=== PATIENT | male | born 1990 | race Hispanic/Latino ===

== ENCOUNTER 2024-06-11 23:48 | Inpatient (IN) | payer SELFPAY ==
[~2024-06-11] VITALS: Ht 167.6 cm; Wt 79.9 kg
[2024-06-12] MEDS: morPHINE 2 MG SYG IVP ONE ×2 (00:19→02:58)
[2024-06-12] MEDS: FAMOTIDINE 20MG VIAL IV ONE (00:19)
[2024-06-12] MEDS: ondanSETRON 4MG INJ IVP ONE ×2 (00:19→02:58)
[2024-06-12 00:29] LABS: BASOPHILS # (AUTO) 0.05 K/uL (0.00-0.20); BASOPHILS % (AUTO) 0.4 % (0.0-5.0); EOSINOPHILS # (AUTO) 0.14 K/uL (0.00-0.70); EOSINOPHILS % (AUTO) 1.1 % (0.0-8.0); HEMATOCRIT 43.5 % (42-54); IMMATURE GRANULOCYTE ABSOLUTE 0.03 K/uL (0-1); LYMPHOCYTES # (AUTO) 5.6 K/uL (1.0-4.8); LYMPHOCYTES % (AUTO) 44.8 % (21.0-51.0); MEAN CORPUSCULAR HEMOGLOBIN 30.9 pg (27.0-33.0); MEAN CORPUSCULAR HGB CONC 34.5 g/dL (32.0-36.0); MEAN CORPUSCULAR VOLUME 89.5 fL (79-99); MONOCYTES # (AUTO) 1.5 K/uL (0.1-1.0); MONOCYTES % (AUTO) 11.6 % (3.0-13.0); NEUTROPHILS # (AUTO) 5.2 K/uL (1.8-7.7); NEUTROPHILS % (AUTO) 41.9 % (40.0-77.0); PLATELET COUNT (AUTO) 272 K/uL (130-400); RED BLOOD CELL COUNT(AUTO) 4.86 MIL/uL (4.50-6.20); RED CELL DISTRIBUTION WIDTH 13.3 % (11.0-15.5); WHITE BLOOD COUNT (AUTO) 12.5 K/uL (4.8-10.8)
[2024-06-12 00:36] LABS: POTASSIUM 3.1 mmol/L (3.5-5.1)
[2024-06-12 00:40] LABS: ALBUMIN 3.9 g/dL (3.5-5.0); BILIRUBIN,DIRECT 0.2 mg/dL (0.0-0.3); BILIRUBIN,TOTAL 0.6 mg/dL (0.2-1.0); TOTAL PROTEIN, SERUM 7.3 g/dL (6.0-8.3)
[2024-06-12] MEDS: hydroMORPHone 1 MG INJ ONE (00:48)
[2024-06-12] MEDS: hydroMORPHone 1 MG INJ IVP ONE (00:48)
[2024-06-12] MEDS: ketOROlac 15MG/ML VIAL (15MG/ML) ONE (00:48)
[2024-06-12] MEDS: ketOROlac 15MG/ML VIAL (15MG/ML) IV ONE (00:48)
[2024-06-12 00:55] LABS: LYMPHOCYTES % (MANUAL) 54 % (22-44); MAN.DIFF COMMENT-IMPRESSION MANUAL DIFFERENTIAL; MONOCYTES % (MANUAL) 4 % (2-9); REACTIVE LYMPHOCYTES 3 % (0-0); SEGMENTED NEUTROPHILS % 39 % (40-70); TOTAL CELLS COUNTED 100; WBC MORPHOLOGY SMUDGE CELLS 1+
[2024-06-12] MEDS ORDERED: ONDA-243 PO (02:48)
[2024-06-12] MEDS ORDERED: FAMO-136 PO (02:48)
[2024-06-12] MEDS ORDERED: KETO10TA2 PO (02:48)
--- NOTE | 2024-06-12 02:48 | ERN ---
General Chief Complaint: Abdominal Pain Stated Complaint: ABDOMINAL PAIN Time Seen by MD: 00:01 Time Seen by Midlevel: 00:01 Source: patient History of Present Illness Initial Comments Patient is a 33-year-old male with no significant past medical history presenting to the emergency department with sudden onset of right upper quadrant abdominal pain. The pain started approximately 30 minutes prior to arrival. Patient states the pain started after he ate something spicy. Denies any past medical history of cholelithiasis. On arrival the patient is in significant amount of pain. Allergies: Coded Allergies: No Known Allergies (Unverified Allergy, Unknown, 06/11/24) Home Meds Active Scripts Ketorolac Tromethamine (Ketorolac Tromethamine) 10 Mg Tablet, 1 TAB PO TID for pain for 5 Days, #15 TAB 0 Refills Prov:AQUILINO SILVEIRA 06/12/24 Famotidine (Pepcid) 20 Mg Tablet, 1 TAB PO BID for 14 Days, #28 TAB 0 Refills Prov:AQUILINO SILVEIRA 06/12/24 Ondansetron (Ondansetron Odt) 4 Mg Tab.rapdis, 4 MG PO BID for 7 Days, #14 TAB Prov:AQUILINO SILVEIRA 06/12/24 Past Medical History Past Medical History: No Pertinent History Past Surgical History: None ROS Dictation CONSTITUTIONAL: Negative except for HPI HEAD/FACE: Negative except for HPI EENT: Negative except for HPI RESPIRATORY: Negative except for HPI GASTROINTESTINAL/ABDOMINAL: Negative except for HPI GENITOURINARY: Negative except for HPI MUSCULOSKELETAL: Negative except for HPI INTEGUMENTARY: Negative except for HPI NEUROLOGICAL/PSYCH: Negative except for HPI HEMATOLOGIC/LYMPHATIC: Negative except for HPI All Systems Negative, Except as noted above. 13 point review of systems assessed and all negative except for above. Physical Exam Physical Exam Dictation Vital Signs reviewed General Appearance: Alert, oriented x 3, no acute distress, severe distress Head and Face: non-traumatic. Eyes: PERRL, pink conjunctivas, eyelid no trauma, anterior chamber with arcus senilis. Ears: Pinnas intact and no signs of trauma or erythema ear canals clear and no discharge TM no erythema Nose: No discharge, no bleeding. Oropharynx: Mouth normal, tongue pink, pharynx clear,no erythema, tonsils no exudates, no abscesses noted, mucous membrane moist Neck: Supple, non-tender, no thyromegaly, no masses, no JVD, no bruits Breast:Deferred Chest:No tenderness, no crepitus, no paradoxical movement, no retractions Lungs:Clear, well-ventilated, symmetric, no rales, no wheezing, no rhonchi, no stridor, good breath sounds bilaterally Heart: Regular rate, regular rhythm, no murmur, no gallops Vascular: no peripheral edema, Abdomen: Soft, positive bowel sounds, nondistended, no guarding, Moderate to severe right upper quadrant abdominal pain, no rebound, no masses no hepatomegaly, no splenomegaly, positive West's sign, no hernias. Rectal: Deferred Genital: Deferred Neurological: Normal speech, motor function intact, sensory function intact Musculoskeletal: Neck nontender, full range of motion, back nontender, full range of motion, Extremities: nontender, full range of motion Skin: Color pink, dry, no turgor, no rash, no lacerations, no abrasions, no contusions. Lymphatic: Deferred Results Laboratory and Microbiology Lab and Micro Result Laboratory Tests Test 06/12/24 00:14 White Blood Count 12.5 K/uL (4.8-10.8) H Red Blood Count 4.86 MIL/uL (4.50-6.20) Hemoglobin 15.0 g/dL (14.0-18.0) Hematocrit 43.5 % (42-54) Mean Corpuscular Volume 89.5 fL (79-99) Mean Corpuscular Hemoglobin 30.9 pg (27.0-33.0) Mean Corpuscular Hemoglobin Concent 34.5 g/dL (32.0-36.0) Red Cell Distribution Width 13.3 % (11.0-15.5) Platelet Count 272 K/uL (130-400) Mean Platelet Volume 9.5 fL (7.5-10.5) Immature Granulocyte % (Auto) 0.2 % (0-1) Neutrophils (%) (Auto) 41.9 % (40.0-77.0) Lymphocytes (%) (Auto) 44.8 % (21.0-51.0) Monocytes (%) (Auto) 11.6 % (3.0-13.0) Eosinophils (%) (Auto) 1.1 % (0.0-8.0) Basophils (%) (Auto) 0.4 % (0.0-5.0) Neutrophils # (Auto) 5.2 K/uL (1.8-7.7) Lymphocytes # (Auto) 5.6 K/uL (1.0-4.8) H Monocytes # (Auto) 1.5 K/uL (0.1-1.0) H Eosinophils # (Auto) 0.14 K/uL (0.00-0.70) Basophils # (Auto) 0.05 K/uL (0.00-0.20) Absolute Immature Granulocyte (auto 0.03 K/uL (0-1) Segmented Neutrophils % 39 % (40-70) L Lymphocytes % (Manual) 54 % (22-44) H Monocytes % (Manual) 4 % (2-9) Nucleated Red Blood Cells 0.0 % (0.0-0.19) Differential Comment MANUAL DIFFERENTIAL Reactive Lymphocytes 3 % (0-0) H White Cell Morphology Comment SMUDGE CELLS 1+ Platelet Morphology Comment See comments Red Blood Cell Morphology NORMAL Sodium Level 137 mmol/L (136-145) Potassium Level 3.1 mmol/L (3.5-5.1) L Chloride Level 101 mmol/L (101-111) Carbon Dioxide Level 25 mmol/L (21-32) Blood Urea Nitrogen 14 mg/dL (7-18) Creatinine 1.0 mg/dL (0.5-1.3) Glomerular Filtration Rate Calc 103 mL/min (>90) Random Glucose 106 mg/dL (70-105) H Total Calcium 9.1 mg/dL (8.5-10.1) Total Bilirubin 0.6 mg/dL (0.2-1.0) Direct Bilirubin 0.2 mg/dL (0.0-0.3) Aspartate Amino Transf (AST/SGOT) 17 U/L (10-37) Alanine Aminotransferase (ALT/SGPT) 23 U/L (12-78) Alkaline Phosphatase 122 U/L (50-136) Troponin I High Sensitivity 6 ng/L (4-75) Total Protein 7.3 g/dL (6.0-8.3) Albumin 3.9 g/dL (3.5-5.0) Lipase 34 U/L (16-77) Labs Reviewed?: Yes MDM MDM: Patient is a 33-year-old male with no significant past medical history presenting to the emergency department with sudden onset of right upper quadrant abdominal pain. The pain started approximately 30 minutes prior to arrival. Patient states the pain started after he ate something spicy. Denies any past medical history of cholelithiasis. On arrival the patient is in significant amount of pain. His abdominal examination is remarkable for severe right upper quadrant abdominal tenderness with positive West signs. I have high clinical suspicion for cholelithiasis versus acute cholecystitis. The patient was given2 mg of morphine, Zofran, and Pepcid with no relief. He was given15 mg of Toradol with no relief. He was then later given1 mg of Dilaudid. Lab work was initiated. CBC shows no leukocytosis, no anemia, no thrombocytopenia. Chemistries are stable. Liver function tests including bilirubin is normal. Ultrasound of the right upper quadrant reveals cholelithiasis. There is borderline gallbladder wall thickening measuring 3 mm. There was no significant gallbladder distention however West sign is positive. There was no biliary dilation. The patient was observed in the emergency department for a proximally 2 hours. The patient states he felt significantly improved and wanted to be discharged however while I finishes paperwork he had a sudden onset of right upper quadrant abdominal pain. The patient was then given two more mg of morphine and two more mg of Zofran. Given the amount of medication that has been administered the patient will be admitted for intractable abdominal pain, cholelithiasis, and biliary colic. The case was discussed with the hospitalist on-call who agrees to admit the patient for further observation and management. Differential diagnosis: Acute cholecystitis, pancreatitis, cholelithiasis, intractable abdominal pain Rationale: Tests considered and ordered secondary to shared decision making include: Previous outside records reviewed: Old ER visits. Risk of complication and/or morbidity or mortality of patient management: None Medications-Per medication reconciliation Need for hospitalization: Patient does meet criteria for hospitalization. Need for emergency major/minor surgery: No There are no social concerns with this patient. Prescription drug management Prescriptions will include symptomatic care Patient's prior external medical records from other ER visits were reviewed by me as indicated. Prior testing and results from previous visits were reviewed. Prior tests were taken into account with medical decision making and resource utilization, independent historian/historians were used to obtain complete medical history. I independently interpreted the test that were performed, results were reviewed by me and considered findings on radiology if ordered. Medical management and examination interpretation discussions were had by me with other qualified healthcare professionals as indicated for the patient's care. ED Course Orders Procedure Category Date Status Time Cbc With Differential LAB 06/12/24 Complete 00:01 Basic Metabolic Panel LAB 06/12/24 Complete 00:01 Hepatic Function Panel LAB 06/12/24 Complete 00:01 Lipase LAB 06/12/24 Complete 00:01 Troponin I High LAB 06/12/24 Complete Sensitivity 00:01 Morphine 2mg Syg PHA 06/12/24 Complete (Morphine 2mg Syg) 00:30 Ondansetron 4mg Inj PHA 06/12/24 Complete (Zofran 4mg Inj) 00:30 Famotidine 20mg Vial PHA 06/12/24 Complete (Pepcid 20mg Vial) 00:30 Us Abdominal Ruq\Ltd US 06/12/24 Taken 00:01 Ketorolac PHA 06/12/24 Complete Tromethamine 15mg/Ml 00:30 Manual Differential LAB 06/12/24 Complete 00:14 Ketorolac PHA 06/12/24 Complete Tromethamine 15mg/Ml 00:31 Hydromorphone 1 Mg PHA 06/12/24 Complete Inj (Dilaudid 1mg Inj 00:34 Hydromorphone 1 Mg PHA 06/12/24 Complete Inj (Dilaudid 1mg Inj 01:00 Ondansetron 4mg Inj PHA 06/12/24 In Process (Zofran 4mg Inj) 03:00 Morphine 2mg Syg PHA 06/12/24 In Process (Morphine 2mg Syg) 03:00 Current Medications Medications (Trade) Dose Ordered Sig/Lalo Route PRN Reason Start Time Stop Time Status Last Admin Dose Admin Famotidine (Pepcid 20mg Vial) 20 mg ONCE ONCE IV 06/12/24 00:30 06/12/24 00:31 DC 06/12/24 00:19 Hydromorphone HCl (DiLAUDid 1MG INJ) 1 mg ONCE ONCE IVP 06/12/24 01:00 06/12/24 01:01 DC 06/12/24 00:48 Hydromorphone HCl (DiLAUDid 1MG INJ) 1 mg STK-MED ONCE .ROUTE 06/12/24 00:34 06/12/24 00:34 DC Ketorolac Tromethamine (toRADol) 15 mg ONCE ONCE IV 06/12/24 00:30 06/12/24 00:31 DC 06/12/24 00:48 Ketorolac Tromethamine (toRADol) 15 mg STK-MED ONCE .ROUTE 06/12/24 00:31 06/12/24 00:31 DC Morphine Sulfate (morPHINE 2MG SYG) 2 mg ONCE ONCE IVP 06/12/24 00:30 06/12/24 00:31 DC 06/12/24 00:19 Morphine Sulfate (morPHINE 2MG SYG) 2 mg ONCE ONCE IVP 06/12/24 03:00 06/12/24 03:01 Ondansetron HCl (zoFRAN 4MG INJ) 4 mg ONCE ONCE IVP 06/12/24 00:30 06/12/24 00:31 DC 06/12/24 00:19 Ondansetron HCl (zoFRAN 4MG INJ) 4 mg ONCE ONCE IVP 06/12/24 03:00 06/12/24 03:01 Vital Signs Date Time Temp Pulse Resp B/P (MAP) Pulse Ox O2 Delivery O2 Flow Rate FiO2 06/12/24 02:34 77 18 118/69 96 Room Air* 0 21 06/12/24 00:48 98.6 85 22 113/61 100 Room Air* 0 21 06/11/24 23:55 98.6 90 23 153/104 100 Room Air DX & DISP Disposition: Inpatient Decision to Admit Date: Jun 12, 2024 Departure Impression: Primary Impression: Cholelithiasis Additional Impressions: Biliary colic, Intractable abdominal pain Condition: Stable Scripts Ketorolac Tromethamine (Ketorolac Tromethamine) 10 Mg Tablet 1 TAB PO TID for pain for 5 Days, #15 TAB 0 Refills Prov: AQUILINO SILVEIRA 06/12/24 Famotidine (Pepcid) 20 Mg Tablet 1 TAB PO BID for 14 Days, #28 TAB 0 Refills Prov: AQUILINO SILVEIRA 06/12/24 Ondansetron (Ondansetron Odt) 4 Mg Tab.rapdis 4 MG PO BID for 7 Days, #14 TAB Prov: AQUILINO SILVEIRA 06/12/24 Referrals: NONE (PCP) VALENTIN RUSHING MD I have reviewed the case, and I agree with, Diagnosis and Plan I performed the substantive portion of the visit. I have reviewed and personally made and approve the management plan that is documented in the note by myself or the MEME. I acknowledge for responsibility for the patient's management plan. AQUILINO SILVEIRA Jun 12, 2024 02:48
[2024-06-12] MEDS: 0.9%NACL 1000ML 1,000 ML IV SCH (04:37)
--- NOTE | 2024-06-12 04:37 | HP ---
[facility]ORY [facility] PHYS[facility] Date of Service: Jun 12, 2024 Time of Service: 04:24 PCP: Self-referral HISTORY OF PRESENT ILLNESS: This is a 33-year-old male, Angolan-speaking with no pertinent medical and surgical history who presents to the ED for complaints of right upper quadrant abdominal pain and pen radiates to his right upper back which started today. Patient reports had consumed soup chilly and after a few minutes he started experiencing severe abdominal pain associated with nausea and nonbloody vomiting x3 episodes. Patient reports this is the 1st time he experienced this. Patient reports he has a normal bowel movement today. Patient admits to smoking one cigarette per day, admits to using marijuana last use yesterday. Denies alcohol and cocaine use. Seen and examined patient in the ER awake alert and coherent appears uncomfortable continue to complain of 6/10 pain level. Patient denies fever, chills, cough, chest pain, palpitation, shortness for breath and diarrhea. Latest vital signs temperature 98.6 heart rate 77, blood pressure 118/69 saturation 96% on room air. Labs: WBC 12.5, hemoglobin 15, hematocrit 43, platelet count 272. Sodium 137, potassium 3.1, glucose 106 troponin six lipase 34. Abdominal ultrasound was done and the preliminary report reveals VSs. Borderline gallbladder wall thickness measuring 3 mm. No significant gallbladder distention finding which would be expected in acute cholecystitis however morphine sign is reported as positive correlate clinically. No biliary dilatation. While in the ER patient received morphine 2 mg IV, Zofran 4 mg IV, Dilaudid 1 mg IV, Toradol 15 mg IV famotidine 20 mg IV. We will admit patient for further medical management. REVIEW OF SYSTEMS CONSTITUTIONAL: Denies fevers, chills, or night sweats. No unintentional weight loss reported. NEUROLOGICAL: Denies headache, amaurosis fugax, motor weakness, sensory deficit, vertigo/spinning sensation, gait abnormalities, or tremors. ENT: No hearing loss, otalgia, otorrhea, rhinitis, rhinorrhea, hoarseness, or sore throat. CARDIOVASCULAR: Denies any exertional angina, dyspnea on exertion, orthopnea, paroxysmal nocturnal dyspnea, palpitations, life-threatening arrhythmias, claudication. PULMONARY: Denies any shortness of breath, cough, phlegm/sputum, hemoptysis, pleuritic chest pain. SLEEP: Denies morning headaches, daytime somnolence or napping. Denies difficulty falling asleep, staying asleep, waking from sleep. Denies knowledge of snoring. GASTROINTESTINAL: Complains of abdominal pain, nausea and vomiting Denies any type of dysphagia to either liquids or solids. Denies pyrosis, early satiety,diarrhea, constipation, or changes in stool consistency or caliber. Denies coffee-ground emesis, hematemesis, hematochezia, or melanotic stools. GENITOURINARY: Denies frequency, urgency, nocturia, hematuria or incontinence (Storage/Irritative symptoms.) Low urinary stream, straining to void, urinary intermittency or hesitancy, splitting of the voiding stream, terminal dribbling. ENDOCRINOLOGIC: Denies polyuria, polydipsia, polyphagia or heat/cold intolerances. HEMATOLOGIC: Denies thrombophilia/previous clots, or coagulopathy/bleeding disorders. ONCOLOGIC: Denies personal history of malignancy. DERMATOLOGIC: Denies rashes or pruritus. PSYCHIATRIC: Denies any suicidal or homicidal ideation. Denies hallucinations. PAST MEDICAL HISTORY: [Patient denies ] PAST SURGICAL HISTORY: [ Patient denies ] PAST SOCIAL HISTORY: [ Patient lives alone. Patient denies cocaine and alcohol use. Patient admits to smoking one cigarette per day and used marijuana last use was yesterday ] FAMILY HISTORY: [ Noncontributory ] Coded Allergies: No Known Allergies (Unverified Allergy, Unknown, 06/11/24) PHYSICAL EXAM GENERAL APPEARANCE: The patient is awake, alert, and oriented, in no acute cardiopulmonary distress. NEUROLOGICAL: Cranial nerves II-XII grossly intact. Motor is 5/5 in bilateral upper and lower extremities proximal to distal. No sensory deficits. HEENT: Face is symmetric. Pupils are equal and reactive. Extraocular movements are intact. NECK: Supple. No JVD. No thyromegaly. No submental, submandibular, pre-/postauricular, occipital or supraclavicular lymphadenopathy. CHEST: Normal chest expansion. No Telemetry. LUNGS: Absence of any rales, rhonchi or any wheezing. CARDIOVASCULAR: Regular. S1 and S2 normal. No appreciable rubs, murmurs or gallops. ABDOMEN: Abdominal tenderness to right upper quadrant on palpation Soft and nondistended. There is no rebound, voluntary guarding, or rigidity. : Deferred. No Sahu. EXTREMITIES: Non-edematous and not cyanotic. No clubbing. Good capillary refill. SKIN: No skin breakdown. Vital Sign (Last 24 Hours) 06/12/24 06/12/24 00:48 02:34 Temp 98.6 Pulse 77 Resp 18 B/P (MAP) 118/69 Pulse Ox 96 O2 Delivery Room Air* O2 Flow Rate 0 FiO2 21 LABS: Laboratory: Test 06/12/24 00:14 Range/Units White Blood Count 12.5 H 4.8-10.8 K/uL Red Blood Count 4.86 4.50-6.20 MIL/uL Hemoglobin 15.0 14.0-18.0 g/dL Hematocrit 43.5 42-54 % Mean Corpuscular Volume 89.5 79-99 fL Mean Corpuscular Hemoglobin 30.9 27.0-33.0 pg Mean Corpuscular Hemoglobin Concent 34.5 32.0-36.0 g/dL Red Cell Distribution Width 13.3 11.0-15.5 % Platelet Count 272 130-400 K/uL Mean Platelet Volume 9.5 7.5-10.5 fL Immature Granulocyte % (Auto) 0.2 0-1 % Neutrophils (%) (Auto) 41.9 40.0-77.0 % Lymphocytes (%) (Auto) 44.8 21.0-51.0 % Monocytes (%) (Auto) 11.6 3.0-13.0 % Eosinophils (%) (Auto) 1.1 0.0-8.0 % Basophils (%) (Auto) 0.4 0.0-5.0 % Neutrophils # (Auto) 5.2 1.8-7.7 K/uL Lymphocytes # (Auto) 5.6 H 1.0-4.8 K/uL Monocytes # (Auto) 1.5 H 0.1-1.0 K/uL Eosinophils # (Auto) 0.14 0.00-0.70 K/uL Basophils # (Auto) 0.05 0.00-0.20 K/uL Absolute Immature Granulocyte (auto 0.03 0-1 K/uL Segmented Neutrophils % 39 L 40-70 % Lymphocytes % (Manual) 54 H 22-44 % Monocytes % (Manual) 4 2-9 % Nucleated Red Blood Cells 0.0 0.0-0.19 % Differential Comment MANUAL DIFFERENTIAL Reactive Lymphocytes 3 H 0-0 % White Cell Morphology Comment SMUDGE CELLS 1+ Platelet Morphology Comment See comments Red Blood Cell Morphology NORMAL Sodium Level 137 136-145 mmol/L Potassium Level 3.1 L 3.5-5.1 mmol/L Chloride Level 101 101-111 mmol/L Carbon Dioxide Level 25 21-32 mmol/L Blood Urea Nitrogen 14 7-18 mg/dL Creatinine 1.0 0.5-1.3 mg/dL Glomerular Filtration Rate Calc 103 >90 mL/min Random Glucose 106 H 70-105 mg/dL Total Calcium 9.1 8.5-10.1 mg/dL Total Bilirubin 0.6 0.2-1.0 mg/dL Direct Bilirubin 0.2 0.0-0.3 mg/dL Aspartate Amino Transf (AST/SGOT) 17 10-37 U/L Alanine Aminotransferase (ALT/SGPT) 23 12-78 U/L Alkaline Phosphatase 122 50-136 U/L Troponin I High Sensitivity 6 4-75 ng/L Total Protein 7.3 6.0-8.3 g/dL Albumin 3.9 3.5-5.0 g/dL Lipase 34 16-77 U/L DIAGNOSTICS / RADIOLOGY: [ ] ASSESSMENT: Possible acute cholecystitis with cholelithiasis POA Hypokalemia POA Suspected Biliary colic POA Acute abdominal pain POA PLAN: We will admit patient in medical surgical floor We will keep patient nothing by mouth We will start NS @ 100 ml / hr and re evaluate We will start patient on Levaquin 750 mg IV daily We will start on Famotidine 20 mg IV bid for GI prophylaxis We will replace electrolytes as needed per protocol We will add prn medication for fever,pain, nausea and vomiting Counseled patient on cigarette smoking and marijuana use cessation We will obtain HIDA scan We will seek general surgery consultation We will request labs in am We will request urinalysis and urine drug screen Further orders to follow depending on above results Case discussed with attending physician and came up with above treatment and plan of care. ADVANCED CARE PLANNING 1. Which of the following were discussed? Hospice Care - No Therapeutic options - Yes Advance Directives - No Other discussions - 2. Discussed with who? Patient 3. Voluntary nature of this service was explained to the patient? Yes 4. Amount of time spent - _19 5. Reviewed by Physician? (if this service was performed by NPP) Yes Patient seen and examined by me. Agree with note by PSYCHOLOGICAL ANTHROPOLOGIST SEE ADDITIONAL ORDERS PER CHART DISCUSSED WITH NURSING STAFF BETH LAINEZ CASHIER GAMBLING Jun 12, 2024 04:37
[2024-06-12] MEDS: morPHINE 2 MG SYG IV PRN (04:38)
[2024-06-12] MEDS: levoFLOXacin 750 MG/D5W 150ML BAG IV SCH (04:47)
[2024-06-12 05:10] VITALS: BP 135/86; PULSE 76; RESP 18; TEMP 98.5
[2024-06-12 05:30] VITALS: O2SAT 100
[2024-06-12 08:00] VITALS: O2SAT 98
[2024-06-12 08:08] VITALS: BP 112/63; PULSE 76; RESP 17; TEMP 97.8
--- NOTE | 2024-06-12 08:33 | HMCIMG ---
Exam Type: US ABDOMINAL RUQ\E\LTD Clinical Information: ruq abd pain Comparison: None Findings: The liver shows fatty infiltration and is enlarged, measuring 16 point cm and is otherwise unremarkable. Doppler evaluation shows patent portal and hepatic veins. The gallbladder shows cholelithiasis and positive West's sign. These findings are consistent with acute cholecystitis. No bile duct dilatation is noted. The gallbladder wall measures 3 mm. The common bile duct measures 3 mm. The right kidney measures 11.7 x 5.2 cm- it shows no hydronephrosis or calculi, masses or other abnormalities. The pancreas is unremarkable. The aorta and inferior vena cava show no significant abnormalities. IMPRESSION: FATTY LIVER INFILTRATION AND HEPATOMEGALY. Acute cholecystitis. OTHERWISE NORMAL RIGHT UPPER QUADRANT ABDOMINAL ULTRASOUND.
[2024-06-12] MEDS: FAMOTIDINE 20MG VIAL IV SCH (09:03)
[2024-06-12] MEDS: PoTASSium chloRIDE 20MEQ/100ML 100 ML IV PRN (10:24)
[2024-06-12] MEDS ORDERED: PoTASSium chl 10% ELIXIR 20MEQ 20 MEQ/15 ML UDCUP PO PRN (10:30)
[2024-06-12] MEDS ORDERED: PoTASSium chloRIDE 20MEQ ER 20 MEQ ERTAB PO PRN (10:30)
[2024-06-12 11:17] VITALS: BP 135/81; PULSE 64; RESP 19; TEMP 97.6
--- NOTE | 2024-06-12 13:33 | DS ---
Discharge Summary Hospital Course Summary: This is a 33-year-old male with no significant past medical history was admitted this morning with diagnosis of acute cholecystitis with cholelithiasis, hypokalemia and suspected biliary colic. Surgeon was consulted and patient was placed NPO. Kept on IV fluids with NS at 100 mL/hr. Was started on IV Levaquin. Today follow up visit patient was found awake alert and oriented x3. he reports he does not have any pain with or without palpation. He is NPO pending surgical evaluation. Latest vitals are stable, afebrile, satting 100% on room air. Later in the afternoon patient's primary nurse reports patient has refused surgical intervention. He wishes to be discharged home. Patient's potassium is being repleted per protocol. We will discontinue IV Levaquin. On initial visit patient and I had a lengthy detailed discussion about diet modification. Patient reiterates he is not having anymore abdominal pain and does not want surgical intervention. Maintenance Team Leader(s): Surgeon Dr. Mcdonough Assessment/Plan: ASSESSMENT: acute cholecystitis with cholelithiasis POA via ultrasound abdomen Hypokalemia POA correcting Suspected Biliary colic POA Acute abdominal pain POA resolved Fatty liver PLAN: Admitted to the medical-surgical floor Kept NPO, restarting diet starting with clear liquid diet Potassium 40 mEq ordered x1 Continued IV fluids Discontinuing IV antibiotics with Levaquin Patient refused surgical intervention Dr. Mcdonough was consulted Discharge Instructions: Patient was to be discharged home. Advised to follow up with the PCP in 2-3 days. Follow up with surgeon this week. This case was discussed with Dr. Hurtado and above plan was formulated Home Medications: Active Scripts Ketorolac Tromethamine (Ketorolac Tromethamine) 10 Mg Tablet, 1 TAB PO TID for pain for 5 Days, #15 TAB 0 Refills Prov:AQUILINO SILVEIRA 06/12/24 Famotidine (Pepcid) 20 Mg Tablet, 1 TAB PO BID for 14 Days, #28 TAB 0 Refills Prov:AQUILINO SILVEIRA 06/12/24 Ondansetron (Ondansetron Odt) 4 Mg Tab.rapdis, 4 MG PO BID for 7 Days, #14 TAB Prov:AQUILINO SILVEIRA 06/12/24 Time spent arranging discharge: 31-60 minutes CHINEDU VASQUEZP Jun 12, 2024 13:33
[2024-06-12] MEDS: PoTASSium chl 10% ELIXIR 20MEQ 20 MEQ/15 ML UDCUP PO ONE (13:52)
--- NOTE | 2024-06-12 15:57 | NUR ---
PATIENT DISCHARGE HOME VIA PERSONAL VEHICLE, IV REMOVED INTACT. ALL QUESTIONS AND CONCERNS ANSWERED.
--- NOTE | 2024-06-12 16:59 | NUR ---
DCP -- Home Patient speaks Serbian. Patient states lives alone in an apartment with a tub. 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 States able to complete ADL's on his own. Denies medical devices. Denies home health services, home care provider or dialysis. PCP - None per patient Pharmacy - [facility] [place]. Upon discharge, Brielle Winn, Mother [phone] Provided Community Resources List. MX HX -- dx gallstones; patient refused surgery at this time Addendum: 06/12/24 at 1702 by YI MERCADO RN CM Amended: Links added.
== END 2024-06-12 16:25 | disposition home or self-care (01) | DRG 446 ==
LOC: EDBD 23:48 → EDH 23:48 → EDHIP 23:49 → 4AH 06-12 04:44
PROVIDERS: ADMIT Internal Medicine; ATTEND Internal Medicine
DX: K80.62 Calculus of gallbladder and bile duct with acute cholecystitis without obstruction (principal); F17.210 Nicotine dependence, cigarettes, uncomplicated; E87.6 Hypokalemia; K76.0 Fatty (change of) liver, not elsewhere classified; Z79.899 Other long term (current) drug therapy
CPT/HCPCS: 36415; 76705; 80048; 80076; 83690; 84484; 85025; 87040; G0378; J1171; J1885; J1956; J2270; J2405; J3480; J3490; J7030